=== PATIENT | male | born 1945 | race Caucasian/White ===

== ENCOUNTER 2017-12-16 16:29 | Emergency (ER) | payer BC, MEDICARE, OTHER ==
[2017-12-16 16:57] VITALS: BP 94/61
[2017-12-16] MEDS: Sodium Chloride 0.9% 10 ML Syringe FLUSH PRN (17:09)
[2017-12-16] MEDS: Sodium Chloride 0.9% 500 ML IV ONE (17:09)
--- NOTE | 2017-12-16 19:54 | EDM.PDOC ---
ED HPI GENERAL MEDICAL PROBLEM - General Chief Complaint: Syncope Stated Complaint: AMBULANCE Time Seen by Provider: 12/16/17 16:31 Source of Information: Reports: Patient, RN Notes Reviewed - History of Present Illness INITIAL COMMENTS - FREE TEXT/NARRATIVE: 72 year old male with syncopal event at [facility] a short time ago. Was standing in line for customer service, began to feel lightheaded, weak, dizzy, almost passed out. He states he went down gently to the floor, no injury from that. He has hx of pulmonary Htn, on multiple meds for that. He has one newer type med administered pump infusion. Just [facility] having been seen by numerous specialists there Wednesday 2 days ago. No chest pain or difficulty breathing. No abd pain, nausea or vomiting. He has had frequent nosebleeds for the last week or so. He has also had dark stools for the last week or so. States he normally does run low BP secondary to the many meds that he is on. - Related Data Allergies Allergy/AdvReac Type Severity Reaction Status Date / Time levofloxacin Allergy Itching Verified 12/16/17 16:57 penicillin Allergy Rash Verified 12/16/17 16:57 Home Meds: Home Meds Budesonide/Formoterol [Symbicort 80-4.5 MCG] 2 puff INH BID 07/02/15 [History] Rosuvastatin [Crestor] 20 mg PO DAILY 07/02/15 [History] Albuterol [IJD: Albuterol HFA] 2 puff INH Q4H PRN 09/01/17 [History] Diltiazem [Cardizem CD] 120 mg PO DAILY 09/01/17 [History] Rivaroxaban [Xarelto] 20 mg PO DAILY 09/01/17 [History] Furosemide 60 mg PO DAILY 12/16/17 [History] Hydrocodone/Acetaminophen [Hydrocodon-Acetaminophen 5-325] 1 tab PO Q6H PRN [History] Sildenafil [Revatio] 20 mg PO TID 12/16/17 [History] Spironolactone [Aldactone] 25 mg PO DAILY 12/16/17 [History] Tiotropium Aneta [Spiriva Respimat] 2 puff INH DAILY 12/16/17 [History] Torsemide 100 mg PO DAILY 12/16/17 [History] Past Medical History Cardiovascular History: Reports: Afib, Heart Failure, High Cholesterol, Hypertension, MA, Stents Respiratory History: Reports: Asthma, COPD, Other (See Below) Other Respiratory History: pulmonary HTN, RL lobectomy Musculoskeletal History: Reports: Osteoarthritis Neurological History: Reports: Neuropathy, Peripheral, Other (See Below) Other Neuro History: twitching Endocrine/Metabolic History: Reports: Diabetes, Type II Oncologic (Cancer) History: Reports: Lung Other Oncologic History: 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; bronciotube cancer - Past Surgical History Cardiovascular Surgical History: Reports: Coronary Artery Stent Other Musculoskeletal Surgeries/Procedures:: right ankle pins and plates Social & Family History - Family History Family Medical History: Noncontributory - Tobacco Use Smoking Status *Q: Former Smoker Used Tobacco, but Quit: Yes Month/Year Tobacco Last Used: 2002 - Recreational Drug Use Recreational Drug Use: No ED ROS GENERAL - Review of Systems Review Of Systems: See Below Constitutional: Denies: Fever, Chills, Diaphoresis HEENT: Reports: Nosebleed (frequent nose bleeds for the past week or so). Denies: Throat Pain Respiratory: Denies: Shortness of Breath, Wheezing, Pleuritic Chest Pain, Cough , Hemoptysis Cardiovascular: Denies: Chest Pain Endocrine: Reports: Fatigue GI/Abdominal: Reports: Melena (dark stools for the last week or so), Other ( rectal, small amt dark stool present on rectal exam, strongly heme pos. ). Denies: Abdominal Pain, Diarrhea, Nausea, Vomiting Musculoskeletal: Denies: Back Pain, Joint Pain Skin: Denies: Rash Neurological: Reports: Dizziness (gone), Numbness (he did have some numbness R foot and leg but that is gone. ) - Physical Exam Exam: See Below General Appearance: Alert, No Apparent Distress Eye Exam: Bilateral Eye: PERRL Throat/Mouth: Normal Inspection Head Exam: Atraumatic. No: Facial Swelling Neck: Supple, Full Range of Motion Respiratory/Chest: No Respiratory Distress, Lungs Clear, Normal Breath Sounds Cardiovascular: Regular Rate, Rhythm GI/Abdominal: Soft, Non-Tender. No: Guarding, Rebound (Male) Exam: Other (black stool, heme pos) Rectal (Males) Exam: Heme + Stool Neuro Exam (Abbreviated): Alert, Oriented, No Motor/Sensory Deficits Back Exam: No: CVA Tenderness (L), CVA Tenderness (R) Extremities: Normal Inspection. No: Pedal Edema, Leg Pain Skin Exam: Warm, Dry, Normal Color. No: Diaphoretic, Pallor Course - Vital Signs Last Recorded V/S: Last Vital Signs Temp 97.0 F 12/16/17 16:53 Pulse 78 12/16/17 16:53 Resp 13 12/16/17 16:53 BP 94/61 12/16/17 16:53 Pulse Ox 97 12/16/17 16:53 Orthostatic Blood Pressure [ 76/46 Standing] Orthostatic Blood Pressure [ 91/61 Supine] - Orders/Labs/Meds Labs: Laboratory Tests 12/16/17 12/16/17 Range/Units 16:50 16:50 WBC 9.64 H (4.23-9.07) K/mm3 RBC 3.36 L (4.63-6.08) M/mm3 Hgb 9.6 L (13.7-17.5) gm/L Hct 29.7 L (40.1-51.0) % MCV 88.4 (79.0-92.2) fl MCH 28.6 (25.7-32.2) pg MCHC 32.3 (32.2-35.5) g/dl RDW Std Deviation 71.0 H (35.1-43.9) fL Plt Count 392 H (163-337) K/mm3 MPV 9.2 L (9.4-12.3) fl Neut % (Auto) 75.0 H (34.0-67.9) % Lymph % (Auto) 10.1 L (21.8-53.1) % Frederick % (Auto) 8.4 (5.3-12.2) % Eos % (Auto) 2.2 (0.8-7.0) Baso % (Auto) 0.8 (0.1-1.2) % Neut # (Auto) 7.23 H (1.78-5.38) K/mm3 Lymph # (Auto) 0.97 L (1.32-3.57) K/mm3 Frederick # (Auto) 0.81 (0.30-0.82) K/mm3 Eos # (Auto) 0.21 (0.04-0.54) K/mm3 Baso # (Auto) 0.08 (0.01-0.08) K/mm3 Manual Slide Review Abnormal smear Sodium 137 (136-145) mEq/L Potassium 3.7 (3.5-5.1) mEq/L Chloride 101 (98-107) mEq/L Carbon Dioxide 29 (21-32) mEq/L Anion Gap 10.7 (5-15) BUN 54 H (7-18) mg/dL Creatinine 1.5 H (0.7-1.3) mg/dL Est Cr Clr Drug Dosing 48.86 mL/min Estimated GFR (MDRD) 46 (>60) mL/min BUN/Creatinine Ratio 36.0 H (14-18) Glucose 122 H (83-115) mg/dL Calcium 9.1 (8.5-10.1) mg/dL Total Bilirubin 0.6 (0.2-1.0) mg/dL AST 14 L (15-37) U/L ALT 23 (16-63) U/L Alkaline Phosphatase 45 L (46-116) U/L Total Protein 6.6 (6.4-8.2) g/dl Albumin 3.7 (3.4-5.0) g/dl Globulin 2.9 gm/dL Albumin/Globulin Ratio 1.3 (1-2) Meds: Medications Discontinued Medications Generic Name Dose Route Start Last Admin Trade Name Freq PRN Reason Stop Dose Admin Famotidine 20 mg 12/16/17 20:54 12/16/17 21:13 Pepcid IVPUSH 12/16/17 20:55 20 mg ONETIME ONE Administration Sodium Chloride 500 mls @ 999 mls/hr 12/16/17 16:47 12/16/17 17:09 Normal Saline IV 12/16/17 17:17 999 mls/hr .BOLUS ONE Administration Pantoprazole Sodium 80 mg 12/16/17 20:54 12/16/17 21:07 Protonix Iv IVPUSH 12/16/17 20:55 80 mg .BOLUS ONE Administration Sodium Chloride 10 ml 12/16/17 16:47 12/16/17 17:09 Saline Flush FLUSH 10 ml ASDIRECTED PRN Administration Keep Vein Open - Re-Assessments/Exams Free Text/Narrative Re-Assessment/Exam: 12/16/17 19:40.. Hgb has come back at 9.6, states it was 11.5 at [facility] 2 days ago. BP has been running mostly in the 80's systolic, unclear how much of drop in hgb from intermitant nose bleeds that he has had for the past week, on rectal dark stool strongly heme positive. No hx of prior GI bleeding. Ortho's, 84/62 lying, 76/58 standing, heart rate increased from 84 to 90. Will discuss with Hospitalist for admission. 20:45. Have been waiting around an hr for Hospitalist to call, he is tied up with a critical patient. With multiple underlying medical problems and with him also being on xarelto I am going to transfer him to [facility]. Family also is supportive of that plan. Dr Kevin, [place] [facility] accepting Provider. Will transfer by ground ambulance. He did drop a BP down to 76 systolic by lying on side, repeat BP 91/51 and than 93/54. Heart rate in the 70's at time of discharge. Pt resting comfortably, no pain, no nausea or vomiting, good skin color. Has never been pale or diaphoretic while here in the ED. Departure - Departure Time of Disposition: 20:00 Disposition: DC/Tfer to Acute Hospital 02 Condition: Serious Clinical Impression: GI bleed Qualifiers: GI bleed type/associated pathology: melena Qualified Code(s): K92.1 - Melena Syncope Qualifiers: Syncope type: unspecified Qualified Code(s): R55 - Syncope and collapse - Discharge Information Referrals: Michael Delgado MD [Primary Care Provider] - Forms: ED Department Discharge
[2017-12-16] MEDS: Pantoprazole 40 MG Vial IVPUSH ONE (21:07)
[2017-12-16] MEDS: Famotidine 20 MG/2 ML SDV IVPUSH ONE (21:13)
== END 2017-12-16 21:23 ==
LOC: JD.ED 16:29
DX: R55 Syncope and collapse (principal); K92.1 Melena; I11.0 Hypertensive heart disease with heart failure; E78.00 Pure hypercholesterolemia, unspecified; I50.9 Heart failure, unspecified; E11.9 Type 2 diabetes mellitus without complications; Z88.0 Allergy status to penicillin; Z88.8 Allergy status to other drugs, medicaments and biological substances; Z79.899 Other long term (current) drug therapy; Z87.891 Personal history of nicotine dependence
CPT/HCPCS: 36415; 80053; 82270; 85025; 93005; 96361; 96374; 96375; 99285; C9113; J7040; J7050

== ENCOUNTER 2018-04-04 14:19 | Emergency (ER) | payer BC, MEDICARE ==
[2018-04-04] MEDS ORDERED: Sodium Chloride 0.9% 10 ML Syringe FLUSH PRN (14:48)
--- NOTE | 2018-04-04 15:42 | EDM.PDOC ---
ED HPI GENERAL MEDICAL PROBLEM - General Chief Complaint: Cardiovascular Problem Stated Complaint: LETHARGIC Time Seen by Provider: 04/04/18 15:25 Source of Information: Reports: Patient History Limitations: Reports: No Limitations - History of Present Illness INITIAL COMMENTS - FREE TEXT/NARRATIVE: Patient is a 73 year old male who presents to the E.D. complaining of increased shortness of breath, fatigue, malaise, weakness, cough productive, nasal congestion, postnasal drip, runny nose, and sinus pressure, with intermittent chills. Patient states symptoms started a week ago Wednesday prior to returning home from [facility]. Patient was in [facility] He was evaluated the following Wednesday in the clinic and placed on azithromycin. Patient states the shortness of breath has grown increasingly worse with exertion. He has no sob at rest. Patient is oxygen dependent and normally utilizes 2-3 L/m via nasal cannula. As of recent oxygen demand has increased. He has history of A-Fib and is on xarelto. He has no history of PE/ DVT. Denies any pain or swelling to his lower extremities. He does admit to awaking in the middle of the night short of breath. Has noted a weight gain of 10 lbs over the past few months. No obvious increase peripheral edema noted. He states he has severe pulmonary htn and has been evaluated at [facility] and [facility]. He was started on remodulin this past September of 2017. As of February 2018 they started decreasing the dose and added sildenafil since he was doing good. He has been tolerating the decrease. 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 He is in remission. Past medical history includes: Cell carcinoma the right lung with lobectomy of the right lower lung. A. fib. Type 2 diabetes. Coronary disease. Pulmonary hypertension. Emphysema. Diastolic heart failure. Valvular heart disease. O2 dependence. right side chest Pain Score (Numeric/FACES): 3 - Related Data Allergies Allergy/AdvReac Type Severity Reaction Status Date / Time levofloxacin Allergy Itching Verified 04/04/18 14:34 penicillin Allergy Rash Verified 04/04/18 14:34 Home Meds: Home Meds Budesonide/Formoterol [Symbicort 80-4.5 MCG] 2 puff INH BID 07/02/15 [History] Rosuvastatin [Crestor] 20 mg PO DAILY 07/02/15 [History] Albuterol [IJD: Albuterol HFA] 2 puff INH Q6HR PRN 09/01/17 [History] Diltiazem [Cardizem CD] 120 mg PO DAILY 09/01/17 [History] Rivaroxaban [Xarelto] 15 mg PO DAILY 09/01/17 [History] Sildenafil [Revatio] 20 mg PO TID 12/16/17 [History] Tiotropium [place] [Spiriva Respimat] 2 puff INH DAILY 12/16/17 [History] Torsemide 50 mg PO DAILY 12/16/17 [History] Aspirin [[place]annock Aspirin] 81 mg PO DAILY 01/24/18 [History] Cetirizine [ZyrTEC] 10 mg PO DAILY 01/24/18 [History] Citalopram [Citalopram HBr] 10 mg PO DAILY 01/24/18 [History] Fish Oil/Greenleaf-3 Fatty Acids [Fish Oil 1,000 MG] 1 tab PO DAILY 01/24/18 [ History] Fluticasone Propionate [Flonase] 2 sprays NS DAILY 01/24/18 [History] Metoprolol Tartrate [Lopressor] 50 mg PO BID 01/24/18 [History] Omeprazole 20 mg PO DAILY 01/24/18 [History] Treprostinil Sodium [Remodulin] 1 mg IJ DAILY 01/24/18 [History] Acetaminophen [Masophen] 500 mg PO TID PRN 04/04/18 [History] Acetaminophen/HYDROcodone [Klemme 325-5 MG] 1 tab PO Q6H PRN 04/04/18 [History] Magnesium Amino Acid Chelate [Magnesium] 100 mg PO DAILY 04/04/18 [History] Oxygen 3 liter IN ASDIRECTED 04/04/18 [History] Selexipag [Uptravi] 400 mcg PO BID 04/04/18 [History] Past Medical History HEENT History: Reports: Allergic Rhinitis Cardiovascular History: Reports: Afib, Heart Failure, High Cholesterol, Hypertension, ND, Pulmonary Hypertension, Stents Respiratory History: Reports: Asthma, COPD, Pneumonia, Recurrent, Other (See Below) Other Respiratory History: pulmonary HTN, RL lobectomy, currently on remodulin pump and weaning off and on uptravi med for PPH Musculoskeletal History: Reports: Osteoarthritis Neurological History: Reports: Neuropathy, Peripheral, Other (See Below) Other Neuro History: twitching Endocrine/Metabolic History: Reports: Diabetes, Type II Oncologic (Cancer) History: Reports: Lung Other Oncologic History: 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; bronciotube cancer - Past Surgical History Cardiovascular Surgical History: Reports: Coronary Artery Stent Other Musculoskeletal Surgeries/Procedures:: right ankle pins and plates Social & Family History - Family History Family Medical History: Noncontributory - Tobacco Use Smoking Status *Q: Former Smoker Used Tobacco, but Quit: No - Caffeine Use Caffeine Use: Reports: Coffee - Recreational Drug Use Recreational Drug Use: No ED ROS GENERAL - Review of Systems Review Of Systems: See Below Constitutional: Reports: Chills, Malaise, Weakness. Denies: Fever HEENT: Reports: Rhinitis, Sinus Problem. Denies: Ear Pain, Throat Pain, Throat Swelling Respiratory: Reports: Shortness of Breath, Cough, Sputum. Denies: Wheezing, Pleuritic Chest Pain, Hemoptysis Cardiovascular: Reports: Dyspnea on Exertion. Denies: Lightheadedness, Palpitations, Syncope GI/Abdominal: Reports: No Symptoms ED EXAM, GENERAL - Physical Exam Exam: See Below Exam Limited By: No Limitations General Appearance: Alert, WD/WN, No Apparent Distress Ears: Hearing Grossly Normal Nose: Normal Inspection Throat/Mouth: Normal Voice, No Airway Compromise Neck: Normal Inspection, Supple Respiratory/Chest: No Respiratory Distress, No Accessory Muscle Use, Chest Non- Tender, Other (Fink crackles noted to the bases with diminished lung sounds on the right side. Patient is able to speak in 4-6 word sentences with no difficulties.) Cardiovascular: Normal Peripheral Pulses, Regular Rate, Rhythm, No JVD Peripheral Pulses: 4+: Radial (L), Radial (R) GI/Abdominal: Normal Bowel Sounds, Soft, Non-Tender, No Organomegaly, No Distention Back Exam: Normal Inspection Extremities: Normal Inspection, Non-Tender, No Pedal Edema, Normal Capillary Refill Neurological: Alert, Oriented, CN II-XII Intact, Normal Cognition, No Motor/ Sensory Deficits Psychiatric: Normal Affect, Normal Mood Skin Exam: Warm, Dry, Intact, Normal Color, No Rash Course - Vital Signs Last Recorded V/S: Last Vital Signs Temp 97.8 F 04/04/18 14:20 Pulse 68 04/04/18 18:22 Resp 20 04/04/18 14:20 BP 107/57 L 04/04/18 18:22 Pulse Ox 80 L 04/04/18 15:58 - Orders/Labs/Meds Orders: Active Orders 24 hr Category Date Time Status EKG 12 Lead [EKG Documentation Completion] [] STAT Care 04/04/18 16:06 Active Peripheral IV Care [RC] . DIRECTED Care 04/04/18 14:48 Active CULTURE BLOOD [BC] Stat Lab 04/04/18 15:03 Received CULTURE BLOOD [BC] Stat Lab 04/04/18 15:10 Received STREP PNEUMONIAE ANTIGEN [MREF] Stat Lab 04/04/18 15:30 Ordered Sildenafil [Revatio] Med 04/04/18 18:15 Active 20 mg PO Q8H Sodium Chloride 0.9% [Normal Saline] 1,000 ml Med 04/04/18 17:00 Active IV ASDIRECTED Sodium Chloride 0.9% [Normal Saline] 100 ml Med 04/04/18 16:15 Active IV ASDIRECTED Sodium Chloride 0.9% [Saline Flush] Med 04/04/18 14:48 Active 10 ml FLUSH ASDIRECTED PRN Blood Culture x2 Reflex Set [OM.PC] Stat Oth 04/04/18 14:48 Ordered Peripheral IV Insertion Adult [OM.PC] Routine Oth 04/04/18 14:48 Ordered Medication Orders Sodium Chloride (Normal Saline) 100 mls @ 60 mls/hr IV ASDIRECTED DOUGIE Last Admin: 04/04/18 16:38 Dose: 60 mls/hr Sodium Chloride (Normal Saline) 1,000 mls @ 75 mls/hr IV ASDIRECTED DOUGIE Last Admin: 04/04/18 17:16 Dose: 75 mls/hr Sildenafil Citrate (Revatio) 20 mg PO Q8H DOUGIE Last Admin: 04/04/18 18:26 Dose: Sodium Chloride (Saline Flush) 10 ml FLUSH ASDIRECTED PRN PRN Reason: Keep Vein Open Last Admin: 04/04/18 15:10 Dose: 10 ml Labs: Laboratory Tests 04/04/18 04/04/18 04/04/18 Range/Units 14:48 15:03 15:03 WBC 9.13 H (4.23-9.07) K/mm3 RBC 5.61 (4.63-6.08) M/mm3 Hgb 11.5 L (13.7-17.5) gm/L Hct 38.9 L (40.1-51.0) % MCV 69.3 L (79.0-92.2) fl MCH 20.5 L (25.7-32.2) pg MCHC 29.6 L (32.2-35.5) g/dl RDW Std Deviation 46.4 H (35.1-43.9) fL Plt Count 520 H (163-337) K/mm3 MPV 10.5 (9.4-12.3) fl Neutrophils % (Manual) 85 H (40-60) % Band Neutrophils % 0 (0-10) % Lymphocytes % (Manual) 5 L (20-40) % Atypical Lymphs % 0 % Monocytes % (Manual) 4 (2-10) % Eosinophils % (Manual) 3 (0.8-7.0) % Basophils % (Manual) 3 H (0.2-1.2) Toxic Granulation 2+ moderate Platelet Estimate Increased Plt Morphology Comment Normal Hypochromasia 1+ slight Anisocytosis 2+ moderate Microcytosis 2+ moderate RBC Morph Comment Not Reportable PT (9.5-12.1) SECONDS INR APTT (24-31) SECONDS D-Dimer, Quantitative (0.19-0.50) mg/L Puncture Site Lt radial ABG pH 7.48 H (7.35-7.45) ABG pCO2 38.4 (35.0-45.0) mmHg ABG pO2 46.0 L (80.0-100.0) mmHg ABG HCO3 28.6 H (22.0-26.0) meq/L ABG O2 Saturation 77.6 L (96.0-97.0) % ABG Base Excess 5.2 H (-2-2.0) Herbert Test Positive A-a Gradient 111 mmHg O2 Delivery Device Simple mask Oxygen Flow Rate 4.0 FiO2 36.00 (21.00-100.00) % Sodium 141 (136-145) mEq/L Potassium 3.8 (3.5-5.1) mEq/L Chloride 103 (98-107) mEq/L Carbon Dioxide 31 (21-32) mEq/L Anion Gap 10.8 (5-15) BUN 23 H (7-18) mg/dL Creatinine 1.2 (0.7-1.3) mg/dL Est Cr Clr Drug Dosing 60.19 mL/min Estimated GFR (MDRD) 59 (>60) mL/min BUN/Creatinine Ratio 19.2 H (14-18) Glucose 91 (83-115) mg/dL Lactic Acid (0.4-2.0) mmol/L Calcium 9.0 (8.5-10.1) mg/dL Total Bilirubin 1.0 (0.2-1.0) mg/dL AST 12 L (15-37) U/L ALT 13 L (16-63) U/L Alkaline Phosphatase 56 (46-116) U/L Troponin I < 0.017 (0.00-0.056) ng/mL C-Reactive Protein 0.7 (<1.0) mg/dL NT-Pro-B Natriuret Pep (0-125) pg/mL Total Protein 7.2 (6.4-8.2) g/dl Albumin 3.7 (3.4-5.0) g/dl Globulin 3.5 gm/dL Albumin/Globulin Ratio 1.1 (1-2) Urine Color (Yellow) Urine Appearance (Clear) Urine pH (5.0-8.0) Ur Specific Linch (1.005-1.030) Urine Protein (Negative) Urine Glucose (UA) (Negative) Urine Ketones (Negative) Urine Occult Blood (Negative) Urine Nitrite (Negative) Urine Bilirubin (Negative) Urine Urobilinogen (0.2-1.0) Ur Leukocyte Esterase (Negative) Urine RBC (0-5) /hpf Urine WBC (0-5) /hpf Ur Epithelial Cells (0-5) /hpf Urine Bacteria (FEW) /hpf Urine Mucus (FEW) /hpf Mycoplasma pneumon IgM Positive H (NEGATIVE) 04/04/18 04/04/18 04/04/18 Range/Units 15:03 15:03 15:03 WBC (4.23-9.07) K/mm3 RBC (4.63-6.08) M/mm3 Hgb (13.7-17.5) gm/L Hct (40.1-51.0) % MCV (79.0-92.2) fl MCH (25.7-32.2) pg MCHC (32.2-35.5) g/dl RDW Std Deviation (35.1-43.9) fL Plt Count (163-337) K/mm3 MPV (9.4-12.3) fl Neutrophils % (Manual) (40-60) % Band Neutrophils % (0-10) % Lymphocytes % (Manual) (20-40) % Atypical Lymphs % % Monocytes % (Manual) (2-10) % Eosinophils % (Manual) (0.8-7.0) % Basophils % (Manual) (0.2-1.2) Toxic Granulation Platelet Estimate Plt Morphology Comment Hypochromasia Anisocytosis Microcytosis RBC Morph Comment PT 12.5 H (9.5-12.1) SECONDS INR 1.15 APTT 38 H (24-31) SECONDS D-Dimer, Quantitative 0.75 H (0.19-0.50) mg/L Puncture Site ABG pH (7.35-7.45) ABG pCO2 (35.0-45.0) mmHg ABG pO2 (80.0-100.0) mmHg ABG HCO3 (22.0-26.0) meq/L ABG O2 Saturation (96.0-97.0) % ABG Base Excess (-2-2.0) Herbert Test A-a Gradient mmHg O2 Delivery Device Oxygen Flow Rate FiO2 (21.00-100.00) % Sodium (136-145) mEq/L Potassium (3.5-5.1) mEq/L Chloride (98-107) mEq/L Carbon Dioxide (21-32) mEq/L Anion Gap (5-15) BUN (7-18) mg/dL Creatinine (0.7-1.3) mg/dL Est Cr Clr Drug Dosing mL/min Estimated GFR (MDRD) (>60) mL/min BUN/Creatinine Ratio (14-18) Glucose (83-115) mg/dL Lactic Acid (0.4-2.0) mmol/L Calcium (8.5-10.1) mg/dL Total Bilirubin (0.2-1.0) mg/dL AST (15-37) U/L ALT (16-63) U/L Alkaline Phosphatase (46-116) U/L Troponin I (0.00-0.056) ng/mL C-Reactive Protein (<1.0) mg/dL NT-Pro-B Natriuret Pep 2629 H (0-125) pg/mL Total Protein (6.4-8.2) g/dl Albumin (3.4-5.0) g/dl Globulin gm/dL Albumin/Globulin Ratio (1-2) Urine Color (Yellow) Urine Appearance (Clear) Urine pH (5.0-8.0) Ur Specific Linch (1.005-1.030) Urine Protein (Negative) Urine Glucose (UA) (Negative) Urine Ketones (Negative) Urine Occult Blood (Negative) Urine Nitrite (Negative) Urine Bilirubin (Negative) Urine Urobilinogen (0.2-1.0) Ur Leukocyte Esterase (Negative) Urine RBC (0-5) /hpf Urine WBC (0-5) /hpf Ur Epithelial Cells (0-5) /hpf Urine Bacteria (FEW) /hpf Urine Mucus (FEW) /hpf Mycoplasma pneumon IgM (NEGATIVE) 04/04/18 04/04/18 Range/Units 15:10 15:30 WBC (4.23-9.07) K/mm3 RBC (4.63-6.08) M/mm3 Hgb (13.7-17.5) gm/L Hct (40.1-51.0) % MCV (79.0-92.2) fl MCH (25.7-32.2) pg MCHC (32.2-35.5) g/dl RDW Std Deviation (35.1-43.9) fL Plt Count (163-337) K/mm3 MPV (9.4-12.3) fl Neutrophils % (Manual) (40-60) % Band Neutrophils % (0-10) % Lymphocytes % (Manual) (20-40) % Atypical Lymphs % % Monocytes % (Manual) (2-10) % Eosinophils % (Manual) (0.8-7.0) % Basophils % (Manual) (0.2-1.2) Toxic Granulation Platelet Estimate Plt Morphology Comment Hypochromasia Anisocytosis Microcytosis RBC Morph Comment PT (9.5-12.1) SECONDS INR APTT (24-31) SECONDS D-Dimer, Quantitative (0.19-0.50) mg/L Puncture Site ABG pH (7.35-7.45) ABG pCO2 (35.0-45.0) mmHg ABG pO2 (80.0-100.0) mmHg ABG HCO3 (22.0-26.0) meq/L ABG O2 Saturation (96.0-97.0) % ABG Base Excess (-2-2.0) Herbert Test A-a Gradient mmHg O2 Delivery Device Oxygen Flow Rate FiO2 (21.00-100.00) % Sodium (136-145) mEq/L Potassium (3.5-5.1) mEq/L Chloride (98-107) mEq/L Carbon Dioxide (21-32) mEq/L Anion Gap (5-15) BUN (7-18) mg/dL Creatinine (0.7-1.3) mg/dL Est Cr Clr Drug Dosing mL/min Estimated GFR (MDRD) (>60) mL/min BUN/Creatinine Ratio (14-18) Glucose (83-115) mg/dL Lactic Acid 0.7 (0.4-2.0) mmol/L Calcium (8.5-10.1) mg/dL Total Bilirubin (0.2-1.0) mg/dL AST (15-37) U/L ALT (16-63) U/L Alkaline Phosphatase (46-116) U/L Troponin I (0.00-0.056) ng/mL C-Reactive Protein (<1.0) mg/dL NT-Pro-B Natriuret Pep (0-125) pg/mL Total Protein (6.4-8.2) g/dl Albumin (3.4-5.0) g/dl Globulin gm/dL Albumin/Globulin Ratio (1-2) Urine Color Yellow (Yellow) Urine Appearance Clear (Clear) Urine pH 7.5 (5.0-8.0) Ur Specific Linch 1.015 (1.005-1.030) Urine Protein Negative (Negative) Urine Glucose (UA) Negative (Negative) Urine Ketones Negative (Negative) Urine Occult Blood Negative (Negative) Urine Nitrite Negative (Negative) Urine Bilirubin Negative (Negative) Urine Urobilinogen 0.2 (0.2-1.0) Ur Leukocyte Esterase Negative (Negative) Urine RBC Not seen (0-5) /hpf Urine WBC 0-5 (0-5) /hpf Ur Epithelial Cells 0-5 (0-5) /hpf Urine Bacteria Not seen (FEW) /hpf Urine Mucus Not seen (FEW) /hpf Mycoplasma pneumon IgM (NEGATIVE) Meds: Medications Generic Name Dose Route Start Last Admin Trade Name Freq PRN Reason Stop Dose Admin Sodium Chloride 100 mls @ 60 mls/hr 04/04/18 16:15 04/04/18 16:38 Normal Saline IV 60 mls/hr ASDIRECTED DOUGIE Administration Sodium Chloride 1,000 mls @ 75 mls/hr 04/04/18 17:00 04/04/18 17:16 Normal Saline IV 75 mls/hr ASDIRECTED DOUGIE Administration Sildenafil Citrate 20 mg 04/04/18 18:15 04/04/18 18:26 Revatio PO Not Given Q8H DOUGIE Sodium Chloride 10 ml 04/04/18 14:48 04/04/18 15:10 Saline Flush FLUSH 10 ml ASDIRECTED PRN Administration Keep Vein Open Discontinued Medications Generic Name Dose Route Start Last Admin Trade Name Freq PRN Reason Stop Dose Admin Furosemide 60 mg 04/04/18 16:04 04/04/18 16:36 Lasix IVPUSH 04/04/18 16:05 60 mg NOW ONE Administration Sodium Chloride 1,000 mls @ 100 mls/hr 04/04/18 16:15 Normal Saline IV ASDIRECTED DOUGIE Ceftriaxone Sodium 1 gm/ 100 mls @ 200 mls/hr 04/04/18 16:55 04/04/18 17:16 Sodium Chloride IV 04/04/18 17:24 200 mls/hr ONETIME ONE Administration Iopamidol 100 ml 04/04/18 16:15 04/04/18 16:38 [id number] (76%) IVPUSH 04/04/18 16:16 100 ml ONETIME ONE Administration Metoprolol Tartrate 50 mg 04/04/18 18:13 04/04/18 18:22 Lopressor PO 04/04/18 18:14 50 mg ONETIME ONE Administration Rivaroxaban 15 mg 04/04/18 18:11 04/04/18 18:22 Xarelto PO 04/04/18 18:12 15 mg NOW STA Administration Sodium Chloride 10 ml 04/04/18 16:15 04/04/18 16:38 Saline Flush FLUSH 04/04/18 16:16 10 ml ONETIME ONE Administration - Re-Assessments/Exams Free Text/Narrative Re-Assessment/Exam: CXR from [facility] sent to our facility. Reviewed with Dr. Lepe with concerns for right sided pleural effusion and questionable haziness to the left lower cardiac border. Reviewed clinic note from 03/31/2018. 04/04/18 15:30 CXR was sent from the [facility] that was obtained today. CXR increasing pleural fluid on the right with new blunting of the left costophrenic angle which suggests a small amount of pleural fluid on the contralateral left side as well. Interstitial prominence is also noted in the left lung base that is slightly increased since the prior examination. 04/04/18 15:46 DDimer reported back at 0.75. Age appropriate. O2 sats via nasal cannula 4 L/m 84% on room air. Patient does not appear to to be short of breath. Blood pressure normotensive. Initial labs and studies include: CMP, CRP, blood cultures 2, mycoplasma, strep pneumonia, troponin, EKG, and ddimer. EKG: Sinus rhythm at a rate of 67 with NM interval 195 and QTc 502. No obvious acute ST changes noted. 1608 Labs reviewed: Blood cell count 9.13, hemoglobin 11.5, platelet count 520, neutrophil percent is 85, bands 0, d-dimer 0.75, potassium 3.8, creatinine 1.2 , glucose 91, lactic acid 0.7, proBNP 2629, troponin less than 0.017. O2 sats remain high 70s low 80s be a simple mask 4 L/m. 1608 I have ordered a CTA of the chest. In addition ordered Lasix 60 mg IVP, BNP is 2629, and patient has been experiencing PND. CXR is concerning for mild increased pulmonary vascular congestion not reported on CXR obtained today. 04/04/18 16:23 I have spoke [facility]. Recommends O2 only. No modification of Pulmonary HTN medications. Ct of the chest. Admit to hospitalists when seeking admission. 04/04/18 16:[address] of the chest with Dr. Lepe. Appears patient has a left/right sided pleural effusion with findings concerning for left lower lobe infiltrate. Patient has allergies to PCN gets a rash. No hx of anaphylaxis. Ordered Rocephin 1 gram IV. 1702 Mycoplasma pneumonia was positive. 1705 [address] [facility] Dr. Lockwood combat control hospitalists is attending to other patients. They will call back when he is available. [address] chest impression: Emphysematous change. No findings of PE. Areas of consolidation within both lungs bases. Differential includes atelectasis as well as pneumonia. Minimal right-sided pleural effusion and small left-sided pleural effusion. Groundglass appearance within both sides of chest raising the possibility of mild pulmonary vascular congestion. Other incidental findings as noted above. 04/04/18 17:[address] Lockwood. Reviewed patients labs and studies with him. He believes this is related to volume overload and not related to infection nor pulmonary htn. He asked me to speak with the family and ensure they are aware volume overload issue to which he has. Family is okay with staying local if will admit. I will call [facility] back if Dr. Lanza declines for admission. Spoke with Dr. Lanza [facility] control Hospital[facility] and she requests patient be transferred to [facility]. [address] Lockwood Hospitalists combat control [facility]. He has accepted the patient. We are arranging transport. Ambulance transport maybe delayed. 1811 [facility] will transporting patient. Patient refuses transport via [facility]. Transfer paperwork completed. Departure - Departure Time of Disposition: 16:53 Disposition: DC/Tfer to Acute Hospital 02 Reason for Transfer *Q: Other Condition: Fair Clinical Impression: Hypoxia Acute exacerbation of CHF (congestive heart failure) Qualifiers: Heart failure type: diastolic Qualified Code(s): I50.33 - Acute on chronic diastolic (congestive) heart failure Referrals: Michael Delgado MD [Primary Care Provider] - Forms: ED Department Discharge - My Orders Last 24 Hours: My Active Orders 04/04/18 14:48 Peripheral IV Care [RC] . DIRECTED Sodium Chloride 0.9% [Saline Flush] 10 ml FLUSH ASDIRECTED PRN Blood Culture x2 Reflex Set [OM.PC] Stat Peripheral IV Insertion Adult [OM.PC] Routine 04/04/18 15:03 CULTURE BLOOD [BC] Stat 04/04/18 15:10 CULTURE BLOOD [BC] Stat 04/04/18 15:30 STREP PNEUMONIAE ANTIGEN [MREF] Stat 04/04/18 16:06 EKG 12 Lead [EKG Documentation Completion] [RC] STAT 04/04/18 16:15 Sodium Chloride 0.9% [Normal Saline] 100 ml IV ASDIRECTED 04/04/18 17:00 Sodium Chloride 0.9% [Normal Saline] 1,000 ml IV ASDIRECTED 04/04/18 18:15 Sildenafil [Revatio] 20 mg PO Q8H - Assessment/Plan Last 24 Hours: My Active Orders 04/04/18 14:48 Peripheral IV Care [RC] . DIRECTED Sodium Chloride 0.9% [Saline Flush] 10 ml FLUSH ASDIRECTED PRN Blood Culture x2 Reflex Set [OM.PC] Stat Peripheral IV Insertion Adult [OM.PC] Routine 04/04/18 15:03 CULTURE BLOOD [BC] Stat 04/04/18 15:10 CULTURE BLOOD [BC] Stat 04/04/18 15:30 STREP PNEUMONIAE ANTIGEN [MREF] Stat 04/04/18 16:06 EKG 12 Lead [EKG Documentation Completion] [RC] STAT 04/04/18 16:15 Sodium Chloride 0.9% [Normal Saline] 100 ml IV ASDIRECTED 04/04/18 17:00 Sodium Chloride 0.9% [Normal Saline] 1,000 ml IV ASDIRECTED 04/04/18 18:15 Sildenafil [Revatio] 20 mg PO Q8H
[2018-04-04] MEDS ORDERED: Furosemide 40 MG/4 ML VIAL IVPUSH ONE (16:04)
[2018-04-04] MEDS ORDERED: Iopamidol 755 Mg/ML 100 ML Bottle IVPUSH ONE (16:15)
[2018-04-04] MEDS ORDERED: Sodium Chloride 0.9% 1,000 ML IV SCH ×2 (16:15→17:00)
[2018-04-04] MEDS ORDERED: Sodium Chloride 0.9% 100 ML IV SCH (16:15)
[2018-04-04] MEDS: Sodium Chloride 0.9% 10 ML Syringe FLUSH ONE ×2 (16:36→16:38)
[2018-04-04] MEDS ORDERED: cefTRIAXone 1 GM in Sodium Chloride 0.9% 100 ML IV ONE (16:55)
--- NOTE | 2018-04-04 17:10 | CT ---
CT chest Technique: Multiple axial sections through the chest are obtained. Intravenous contrast was utilized. Study has been performed as a pulmonary angiogram protocol. Comparison: Prior chest CT study of 12/04/09. Findings: Small left-sided pleural effusion is seen with very minimal right-sided pleural effusion. There is consolidation noted within both lung bases. Groundglass appearance is noted within both lungs. Emphysematous change is also seen within both lungs. Heart is enlarged. Gallstones are seen within the gallbladder. Spleen is not completely seen but felt to be mildly enlarged. Spleen is minimally more prominent than on previous exam. Coronary artery calcification is seen. Heart is mildly enlarged. No filling defects are seen within the pulmonary arteries to indicate pulmonary embolism. Old right lower rib fractures are seen. Mild degenerative change is scattered within the spine. Atherosclerotic calcification is noted within a nondilated aorta. Impression: 1. Emphysematous change. 2. No findings of pulmonary embolism. 3. Areas of consolidation within both lung bases. Differential includes atelectasis as well as pneumonia. 4. Minimal right-sided pleural effusion and small left-sided pleural effusion. 5. Groundglass appearance within both sides of chest raising the possibility of mild pulmonary vascular congestion. 6. Other incidental findings as noted above. Diagnostic code #3
[2018-04-04] MEDS ORDERED: Rivaroxaban 10 MG Tab PO STA (18:11)
[2018-04-04] MEDS ORDERED: Metoprolol Tartrate 50 MG Tab PO ONE (18:13)
[2018-04-04] MEDS ORDERED: Sildenafil 20 MG Tab PO SCH (18:15)
[2018-04-04 18:23] VITALS: BP 107/57
== END 2018-04-04 19:17 ==
LOC: JD.ED 14:19
DX: I11.0 Hypertensive heart disease with heart failure (principal); I50.33 Acute on chronic diastolic (congestive) heart failure; R09.02 Hypoxemia; Z88.1 Allergy status to other antibiotic agents; Z88.0 Allergy status to penicillin; Z79.899 Other long term (current) drug therapy; I48.91 Unspecified atrial fibrillation; I25.2 Old myocardial infarction; J44.9 Chronic obstructive pulmonary disease, unspecified; E11.9 Type 2 diabetes mellitus without complications; Z87.891 Personal history of nicotine dependence; Z79.82 Long term (current) use of aspirin
CPT/HCPCS: 36415; 36600; 71275; 80053; 81001; 82803; 83605; 83880; 84484; 85007; 85027; 85379; 85610; 85730; 86140; 86738; 87040; 87899; 93005; 96365; 96375; 99285; A9270; J0696; J1940; J7030; J7040; J7050; Q9967

== ENCOUNTER 2018-12-28 17:14 | Emergency (ER) | payer BC, OTHER, MEDICARE ==
[2018-12-28] MEDS ORDERED: Furosemide 40 MG/4 ML VIAL IVPUSH ONE (18:10)
[2018-12-28] MEDS ORDERED: Diltiazem 50 MG/10 ML SDV IVPUSH STA (19:02)
--- NOTE | 2018-12-28 19:02 | EDM.PDOC ---
ED HPI GENERAL MEDICAL PROBLEM - General Chief Complaint: Respiratory Problem Stated Complaint: SOB,CHILLS AND DIZZY Time Seen by Provider: 12/28/18 17:45 Source of Information: Reports: Patient, Family (), RN Notes Reviewed History Limitations: Reports: No Limitations - History of Present Illness INITIAL COMMENTS - FREE TEXT/NARRATIVE: The patient states that he developed dyspnea this morning, and that it has been coming and going all day, however, by 17:00 this afternoon, the patient was experiencing significant dyspnea. He has had a slight cough productive of clear sputum. He has had a slight wheeze. No fever, but he has felt chilled today. Patient also reported some sternal pain today. The patient reports similar symptoms in the past, due to fluid overload. The patient has a history of COPD, lung cancer, twice, pulmonary hypertension, coronary disease, status post a "silent" OK, and diastolic CHF. He is status post a right lower lobectomy. The patient wears home oxygen, 3 to 4 L, depending on his activity. He states that he was tested for obstructive sleep apnea, and found to be borderline. He does not have CPAP or BiPAP at home. The patient is on Xarelto. He is not exactly sure why, but it may be because of his history of paroxysmal atrial fibrillation. The patient's PCP is Dr. Delgado. His Apprentice/Lineman is Dr. Parsons. His Scientific Informatics Leader is Dr. Topete. His physician at [facility] is Dr. Conteh. Middle Chest Pain Score (Numeric/FACES): 3 - Related Data Allergies Allergy/AdvReac Type Severity Reaction Status Date / Time levofloxacin Allergy Itching Verified 06/21/18 11:48 penicillin Allergy Rash Verified 06/21/18 11:48 Home Meds: Home Meds Budesonide/Formoterol [Symbicort 80-4.5 MCG] 2 puff INH BID 07/02/15 [History] Rosuvastatin [Crestor] 20 mg PO DAILY 07/02/15 [History] Albuterol [IJD: Albuterol HFA] 2 puff INH Q6HR PRN 09/01/17 [History] Diltiazem [Cardizem CD] 120 mg PO DAILY 09/01/17 [History] Rivaroxaban [Xarelto] 15 mg PO DAILY 09/01/17 [History] Sildenafil [Revatio] 20 mg PO TID 12/16/17 [History] Tiotropium [place] [Spiriva Respimat] 2 puff INH DAILY 12/16/17 [History] Torsemide 50 mg PO DAILY 12/16/17 [History] Aspirin [[place] Aspirin] 81 mg PO DAILY 01/24/18 [History] Cetirizine [ZyrTEC] 10 mg PO DAILY 01/24/18 [History] Citalopram [Citalopram HBr] 10 mg PO DAILY 01/24/18 [History] Fish Oil/[place]-3 Fatty Acids [Fish Oil 1,000 MG] 1 tab PO DAILY 01/24/18 [ History] Fluticasone Propionate [Flonase] 2 sprays NS DAILY 01/24/18 [History] Metoprolol Tartrate [Lopressor] 50 mg PO BID 01/24/18 [History] Omeprazole 20 mg PO DAILY 01/24/18 [History] Acetaminophen [Masophen] 500 mg PO TID PRN 04/04/18 [History] Acetaminophen/HYDROcodone [[place] 325-5 MG] 1 tab PO Q6H PRN 04/04/18 [History] Magnesium Amino Acid Chelate [Magnesium] 100 mg PO DAILY 04/04/18 [History] Oxygen 3 liter IN ASDIRECTED 04/04/18 [History] Selexipag [Uptravi] 1,600 mcg PO BID 04/04/18 [History] Past Medical History HEENT History: Reports: Allergic Rhinitis Cardiovascular History: Reports: Afib (paroxysmal), Heart Failure (diastolic), High Cholesterol, Hypertension, OK ("silent"), Pulmonary Hypertension Respiratory History: Reports: COPD. 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; bronciotube cancer - Past Surgical History HEENT Surgical History: Reports: Tonsillectomy Cardiovascular Surgical History: Reports: Coronary Artery Stent (x 1), Other ( See Below) (coronary angiogram) Respiratory Surgical History: Reports: Lung Resection (right lower lobe) GI Surgical History: Reports: Colonoscopy (x 1) Musculoskeletal Surgical History: Reports: ORIF (right ankle) Social & Family History - Family History Family Medical History: Noncontributory - Tobacco Use Smoking Status *Q: Former Smoker Years of Tobacco use: 35 Packs/Tins Daily: 2 Month/Year Tobacco Last Used: Quit around 2000 - Caffeine Use Caffeine Use: Reports: Coffee - Alcohol Use Alcohol Use History: Yes Alcohol Use Frequency: Socially - Recreational Drug Use Recreational Drug Use: No - Living Situation & Occupation Living situation: Reports: , with Spouse Occupation: Retired ED ROS GENERAL - Review of Systems Review Of Systems: ROS reveals no pertinent complaints other than HPI. ED EXAM, GENERAL - Physical Exam Exam: See Below Exam Limited By: No Limitations General Appearance: Alert, WD/WN, Moderate Distress (obvious dyspnea) Eye Exam: Bilateral Eye: EOMI, Normal Inspection Ears: Normal External Exam, Hearing Grossly Normal Nose: Normal Inspection Throat/Mouth: Normal Inspection, Normal Lips, Normal Voice, No Airway Compromise Head: Atraumatic, Normocephalic Neck: Normal Inspection, Full Range of Motion Respiratory/Chest: Respiratory Distress (moderate), Decreased Breath Sounds ( throughout, especially at the right base), Crackles (few, scattered), Wheezing ( faint, expiratory), Accessory Muscle Use. No: Rhonchi, Prolonged Expiration Cardiovascular: Normal Peripheral Pulses, No Edema, No Gallop, No JVD, No Murmur , No Rub, Tachycardia, Irregularly Irregular Peripheral Pulses: 3+: Radial (L), Radial (R) GI/Abdominal: Normal Bowel Sounds, Soft, Non-Tender, No Organomegaly, No Distention, No Abnormal Bruit, No Mass (Male) Exam: Deferred Rectal (Males) Exam: Deferred Back Exam: Normal Inspection, Full Range of Motion, NT Extremities: Normal Inspection, Normal Range of Motion, No Pedal Edema, Normal Capillary Refill Neurological: Alert, Oriented, Normal Cognition, No Motor/Sensory Deficits Psychiatric: Normal Affect Skin Exam: Warm, Intact, Normal Color, No Rash, Diaphoretic EKG INTERPRETATION EKG Date: 12/28/18 Time: 18:40 Rhythm: A-Fib Rate (Beats/Min): 136 [place]: RAD-Right [place] Deviation (likely 2 LPFB and RVH) P-Wave: Absent QRS: Normal ST-T: Normal (late transition) QT: Normal Comparison: Change From Previous EKG (Was in NSR w/ RAD 04/04/2018) Course - Vital Signs Last Recorded V/S: Last Vital Signs Temp 36.1 C 12/28/18 17:24 Pulse 110 H 12/28/18 17:24 Resp 31 H 12/28/18 17:24 BP 186/138 H 12/28/18 17:24 Pulse Ox 83 L 12/28/18 17:24 - Orders/Labs/Meds Orders: Active Orders 24 hr Category Date Time Status BIPAP Adult [RT BiPAP/CPAP] [RC] ASDIRECTED Care 12/28/18 18:09 Active EKG Documentation Completion [RC] STAT Care 12/28/18 18:06 Active Chest 1V Frontal [CR] Stat Exams 12/28/18 18:06 Taken CULTURE BLOOD [BC] Stat Lab 12/28/18 18:25 Received CULTURE BLOOD [BC] Stat Lab 12/28/18 18:35 Received Azithromycin [Zithromax] 500 mg Med 12/28/18 19:38 Active Sodium Chloride 0.9% [Normal Saline] 250 ml IV ONETIME Diltiazem 125 mg Med 12/28/18 19:15 Active Sodium Chloride 0.9% [Normal Saline] 100 ml IV TITRATE cefTRIAXone [Rocephin] 1 gm Med 12/28/18 19:36 Active Sodium Chloride 0.9% [Normal Saline] 100 ml IV ONETIME Blood Culture x2 Reflex Set [OM.PC] Stat Oth 12/28/18 18:06 Ordered Medication Orders Diltiazem HCl 125 mg/ Sodium (Chloride) 125 mls @ 10 mls/hr IV TITRATE DOUGIE; Protocol Last Admin: 12/28/18 19:23 Dose: 10 mg/hr, 10 mls/hr Azithromycin 500 mg/ Sodium (Chloride) 250 mls @ 250 mls/hr IV ONETIME ONE Stop: 12/28/18 20:37 Ceftriaxone Sodium 1 gm/ (Sodium Chloride) 100 mls @ 200 mls/hr IV ONETIME ONE Stop: 12/28/18 20:05 Last Admin: 12/28/18 19:48 Dose: 200 mls/hr Labs: Laboratory Tests 12/28/18 12/28/18 12/28/18 Range/Units 17:49 18:25 18:25 WBC 24.63 H (4.23-9.07) K/mm3 RBC 7.69 H (4.63-6.08) M/mm3 Hgb 13.4 L (13.7-17.5) gm/L Hct 46.5 (40.1-51.0) % MCV 60.5 L (79.0-92.2) fl MCH 17.4 L (25.7-32.2) pg MCHC 28.8 L (32.2-35.5) g/dl RDW Std Deviation 47.3 H (35.1-43.9) fL Plt Count 725 H (163-337) K/mm3 MPV TNP Neutrophils % (Manual) 89 H (40-60) % Band Neutrophils % 0 (0-10) % Lymphocytes % (Manual) 3 L (20-40) % Atypical Lymphs % 0 % Monocytes % (Manual) 4 (2-10) % Eosinophils % (Manual) 4 (0.8-7.0) % Basophils % (Manual) 0 L (0.2-1.2) Platelet Estimate Increased Plt Morphology Comment Normal Hypochromasia 3+ marked Poikilocytosis 2+ moderate Microcytosis 2+ moderate Puncture Site Rt radial ABG pH 7.45 (7.35-7.45) ABG pCO2 30.5 L (35.0-45.0) mmHg ABG pO2 38.0 L* (80.0-100.0) mmHg ABG HCO3 21.1 L (22.0-26.0) meq/L ABG O2 Saturation 65.8 L (96.0-97.0) % ABG Base Excess -1.5 (-2-2.0) Herbert Test Positive A-a Gradient 212 mmHg O2 Delivery Device Simple mask Oxygen Flow Rate 7.0 FiO2 45.00 (21.00-100.00) % Sodium 140 (136-145) mEq/L Potassium 3.8 (3.5-5.1) mEq/L Chloride 102 (98-107) mEq/L Carbon Dioxide 27 (21-32) mEq/L Anion Gap 14.8 (5-15) BUN 27 H (7-18) mg/dL Creatinine 1.3 (0.7-1.3) mg/dL Est Cr Clr Drug Dosing 55.55 mL/min Estimated GFR (MDRD) 54 (>60) mL/min BUN/Creatinine Ratio 20.8 H (14-18) Glucose 120 H (83-115) mg/dL Lactic Acid (0.4-2.0) mmol/L Calcium 9.2 (8.5-10.1) mg/dL Total Bilirubin 1.3 H (0.2-1.0) mg/dL AST 14 L (15-37) U/L ALT 22 (16-63) U/L Alkaline Phosphatase 107 (46-116) U/L Troponin I < 0.017 (0.00-0.056) ng/mL NT-Pro-B Natriuret Pep (0-125) pg/mL Total Protein 8.3 H (6.4-8.2) g/dl Albumin 4.5 (3.4-5.0) g/dl Globulin 3.8 gm/dL Albumin/Globulin Ratio 1.2 (1-2) 12/28/18 12/28/18 Range/Units 18:25 18:25 WBC (4.23-9.07) K/mm3 RBC (4.63-6.08) M/mm3 Hgb (13.7-17.5) gm/L Hct (40.1-51.0) % MCV (79.0-92.2) fl MCH (25.7-32.2) pg MCHC (32.2-35.5) g/dl RDW Std Deviation (35.1-43.9) fL Plt Count (163-337) K/mm3 MPV Neutrophils % (Manual) (40-60) % Band Neutrophils % (0-10) % Lymphocytes % (Manual) (20-40) % Atypical Lymphs % % Monocytes % (Manual) (2-10) % Eosinophils % (Manual) (0.8-7.0) % Basophils % (Manual) (0.2-1.2) Platelet Estimate Plt Morphology Comment Hypochromasia Poikilocytosis Microcytosis Puncture Site ABG pH (7.35-7.45) ABG pCO2 (35.0-45.0) mmHg ABG pO2 (80.0-100.0) mmHg ABG HCO3 (22.0-26.0) meq/L ABG O2 Saturation (96.0-97.0) % ABG Base Excess (-2-2.0) Herbert Test A-a Gradient mmHg O2 Delivery Device Oxygen Flow Rate FiO2 (21.00-100.00) % Sodium (136-145) mEq/L Potassium (3.5-5.1) mEq/L Chloride (98-107) mEq/L Carbon Dioxide (21-32) mEq/L Anion Gap (5-15) BUN (7-18) mg/dL Creatinine (0.7-1.3) mg/dL Est Cr Clr Drug Dosing mL/min Estimated GFR (MDRD) (>60) mL/min BUN/Creatinine Ratio (14-18) Glucose (83-115) mg/dL Lactic Acid 2.9 H (0.4-2.0) mmol/L Calcium (8.5-10.1) mg/dL Total Bilirubin (0.2-1.0) mg/dL AST (15-37) U/L ALT (16-63) U/L Alkaline Phosphatase (46-116) U/L Troponin I (0.00-0.056) ng/mL NT-Pro-B Natriuret Pep 3320 H (0-125) pg/mL Total Protein (6.4-8.2) g/dl Albumin (3.4-5.0) g/dl Globulin gm/dL Albumin/Globulin Ratio (1-2) Meds: Medications Generic Name Dose Route Start Last Admin Trade Name Freq PRN Reason Stop Dose Admin Diltiazem HCl 125 mg/ Sodium 125 mls @ 10 mls/hr 12/28/18 19:15 12/28/18 19: 23 Chloride IV 10 mg/hr TITRATE DOUGIE 10 mls/hr Administration Protocol 10 MG/HR Azithromycin 500 mg/ Sodium 250 mls @ 250 mls/hr 12/28/18 19:38 Chloride IV 12/28/18 20:37 ONETIME ONE Ceftriaxone Sodium 1 gm/ 100 mls @ 200 mls/hr 12/28/18 19:36 12/28/18 19:48 Sodium Chloride IV 12/28/18 20:05 200 mls/hr ONETIME ONE Administration Discontinued Medications Generic Name Dose Route Start Last Admin Trade Name Freq PRN Reason Stop Dose Admin Diltiazem HCl 5 mg 12/28/18 19:02 12/28/18 19:22 Cardizem IVPUSH 12/28/18 19:03 5 mg ONETIME STA Administration Furosemide 40 mg 12/28/18 18:10 12/28/18 19:07 Lasix IVPUSH 12/28/18 18:11 40 mg NOW ONE Administration - Re-Assessments/Exams Free Text/Narrative Re-Assessment/Exam: 12/28/18 19:15 Portable chest radiograph reviewed. There is likely cardiomegaly, but no pulmonary vascular congestion to suggest decompensated CHF. There is a right- sided pleural effusion. An infiltrate is seen in the right upper lobe, that may extend to the middle lobe. No pneumothorax. Formal read per the Radiologist pending. 12/28/18 19:38 The patient's ECG demonstrates atrial fibrillation with a rapid RVR at 136, along with right axis deviation, most likely secondary to a left posterior fascicular block and RVH. I ordered diltiazem 5 mg IVP, to be followed by a diltiazem drip at 10 mg/hr. Based on the chest x-ray results (the CBC is not back yet), I have ordered IV Rocephin and IV azithromycin. Blood cultures were obtained at the time of his initial blood draws. The patient's lactic acid level is mildly elevated at 2.9, reflecting hyperlactatemia, not lactic acidosis, as his bicarbonate level is normal. The patient's BNP is elevated at 3320, however, his chest x-ray is not consistent with decompensated CHF. 12/28/18 20:04 The patient's CBC has returned with a WBC count significantly elevated at 24.63 , but with 0% bandemia. His platelets are elevated at 725. Test results discussed with the patient, his , and daughter. I recommended admission to the hospital, to which they agreed. Because the patient is on a diltiazem drip, he will require ICU admission, however, we do not have any ICU beds available at this facility, therefore the patient will require transfer to [facility]. The patient preferred [facility]. Case discussed with Moe at [facility] One Call at 19:54. Moe discussed the case with Dr. Hitchcock, Hospitalist at [facility], who refused the admission because the patient is on BiPAP, however, he suggested that the patient be sent to their ED. Case then discussed with Dr. Trenton Sanchez, ED physician at [facility], at 20:02. She accepted transfer of the patient to their ED. The patient will go by ground ambulance. 12/28/18 20:34 The portable chest radiograph image has been pushed to [facility]. Departure - Departure Time of Disposition: 20:03 Disposition: DC/Tfer to Acute Hospital 02 Condition: Fair Clinical Impression: Community acquired pneumonia, Hypoxemia, Paroxysmal atrial fibrillation with rapid ventricular response - Discharge Information *PRESCRIPTION DRUG MONITORING PROGRAM REVIEWED*: Not Applicable *COPY OF PRESCRIPTION DRUG MONITORING REPORT IN PATIENT KATIA: Not Applicable Referrals: Mcihael Delgado MD [Primary Care Provider] - - My Orders Last 24 Hours: My Active Orders 12/28/18 18:06 EKG Documentation Completion [RC] STAT Chest 1V Frontal [CR] Stat Blood Culture x2 Reflex Set [OM.PC] Stat 12/28/18 18:09 BIPAP Adult [RT BiPAP/CPAP] [RC] ASDIRECTED 12/28/18 18:25 CULTURE BLOOD [BC] Stat 12/28/18 18:35 CULTURE BLOOD [BC] Stat 12/28/18 19:15 Diltiazem 125 mg Sodium Chloride 0.9% [Normal Saline] 100 ml IV TITRATE 12/28/18 19:36 cefTRIAXone [Rocephin] 1 gm Sodium Chloride 0.9% [Normal Saline] 100 ml IV ONETIME 12/28/18 19:38 Azithromycin [Zithromax] 500 mg Sodium Chloride 0.9% [Normal Saline] 250 ml IV ONETIME - Assessment/Plan Last 24 Hours: My Active Orders 12/28/18 18:06 EKG Documentation Completion [RC] STAT Chest 1V Frontal [CR] Stat Blood Culture x2 Reflex Set [OM.PC] Stat 12/28/18 18:09 BIPAP Adult [RT BiPAP/CPAP] [RC] ASDIRECTED 12/28/18 18:25 CULTURE BLOOD [BC] Stat 12/28/18 18:35 CULTURE BLOOD [BC] Stat 12/28/18 19:15 Diltiazem 125 mg Sodium Chloride 0.9% [Normal Saline] 100 ml IV TITRATE 12/28/18 19:36 cefTRIAXone [Rocephin] 1 gm Sodium Chloride 0.9% [Normal Saline] 100 ml IV ONETIME 12/28/18 19:38 Azithromycin [Zithromax] 500 mg Sodium Chloride 0.9% [Normal Saline] 250 ml IV ONETIME
[2018-12-28] MEDS ORDERED: Diltiazem 125 MG in Sodium Chloride 0.9% 100 ML IV SCH (19:15)
[2018-12-28] MEDS ORDERED: cefTRIAXone 1 GM in Sodium Chloride 0.9% 100 ML IV ONE (19:36)
[2018-12-28] MEDS ORDERED: Azithromycin 500 MG in Sodium Chloride 0.9% 250 ML IV ONE (19:38)
[2018-12-28 21:59] VITALS: BP 99/55
--- NOTE | 2018-12-29 06:55 | CR ---
Chest: Portable view of the chest was obtained. Comparison: Previous chest x-ray of 09/07/[address] of 04/04/18. Increased density is noted within right mid and lower lung. Slight increased density is also seen within the left base. Elevated right hemidiaphragm is seen which appears chronic. Heart size is normal. Tortuous thoracic aorta is seen. Slight widening of the upper mediastinum is seen which appears to be accentuated due to portable technique. Impression: 1. Increased density within the right chest and lesser increased density within the left chest as noted above. Findings are most likely due to bilateral pneumonia. 2. Other incidental findings. Diagnostic code #3
== END 2018-12-28 21:30 ==
LOC: JD.ED 17:14
DX: J18.9 Pneumonia, unspecified organism (principal); R09.02 Hypoxemia; I48.0 Paroxysmal atrial fibrillation; I48.91 Unspecified atrial fibrillation; I50.9 Heart failure, unspecified; E78.00 Pure hypercholesterolemia, unspecified; I11.0 Hypertensive heart disease with heart failure; I25.2 Old myocardial infarction; J44.9 Chronic obstructive pulmonary disease, unspecified; F32.9 Major depressive disorder, single episode, unspecified; Z87.891 Personal history of nicotine dependence; Z88.1 Allergy status to other antibiotic agents; Z79.899 Other long term (current) drug therapy
CPT/HCPCS: 36415; 36600; 71045; 80053; 82803; 83605; 83880; 84484; 85007; 85027; 87040; 93005; 94660; 96365; 96366; 96368; 96375; 99285; J0456; J0696; J1940; J3490; J7030; J7050; 93010